=== PATIENT | female | born 1995 | race Caucasian/White ===

== ENCOUNTER 2017-11-27 15:44 | Inpatient (IN) | payer BC, OTHER ==
[2017-11-27 15:52] VITALS: BMI 37.0
--- NOTE | 2017-11-27 20:27 | HP ---
COWS - Scale Resting Pulse: 1= [place] 81-100 Sweatin= Chills/Flushing Restless Observation: 1= Difficult to Sit Still Pupil Size: 1= Pupils >than Normal Bone or Joint Aches: 1= Mild Discomfort Runny Nose/ Eye Tearin= Runny Nose/Eyes GI Upset > 30mins: 3= Vomiting/Diarrhea Tremor Observation: 1= Tremor [place], Not Seen Yawning Observation: 1= 1-2x During Session Anxiety or Irritability: 2=Irritable/Anxious Goose Flesh Skin: 3=Piloerection COWS Score: 17 Admission ROS S - HPI Chief Complaint: "I feel really sick right now, the withdrawal are so bad" opioid withdrawal symptoms Allergies/Adverse Reactions: Allergies Allergy/AdvReac Type Severity Reaction Status Date / Time No Known Allergies Allergy Verified 11/27/17 17:41 History of Present Illness: 22 yo female with hx of heroin and cocaine dependence is here seeking detox for the first time. Denies any medical problems, reports anxiety. Denies suicidal / homicidal ideation. Denies hx of overdose, seizures or blackouts. Reports no significant period of sobriety. Exam Limitations: No Limitations - Ebola screening Have you traveled outside of the country in the last 21 days: No (N) Have you had contact with anyone from an Ebola affected area: No Have you been sick,other than usual withdrawal symptoms: No Do you have a fever: No - Review of Systems Constitutional: Chills, Diaphoresis, Loss of Appetite, Changes in sleep, Weakness EENT: reports: Nose Congestion Respiratory: reports: No Symptoms reported Cardiac: reports: No Symptoms Reported GI: reports: Nausea, Poor Appetite, Poor Fluid Intake, Vomiting, Abdominal cramping : reports: No Symptoms Reported Musculoskeletal: reports: Back Pain, Joint Pain Integumentary: reports: No Symptoms Reported Neuro: reports: No Symptoms reported Endocrine: reports: Increased Thirst Hematology: reports: No Symptoms Reported Psychiatric: reports: Orientated x3, Anxious Other Systems: Reviewed and Negative Patient History - Patient Medical History Hx Anemia: No Hx Asthma: No Hx Chronic Obstructive Pulmonary Disease (COPD): No Hx Cancer: No Hx Cardiac Disorders: No Hx Congestive Heart Failure: No Hx Hypertension: No Hx Hypercholesterolemia: No Hx Pacemaker: No HX Cerebrovascular Accident: No Hx Seizures: No Hx Dementia: No Hx Diabetes: No Hx Gastrointestinal Disorders: No Hx Liver Disease: No Hx Genitourinary Disorders: No Hx Sexually Transmitted Disorders: No Hx Renal Disease (ESRD): No Hx Thyroid Disease: No Hx Human Immunodeficiency Virus (HIV): No Hx Hepatitis C: No Hx Depression: No Hx Suicide Attempt: No Hx Bipolar Disorder: No Hx Schizophrenia: No - Patient Surgical History Past Surgical History: No - PPD History Previous Implant?: Yes Documented Results: Negative w/o proof Implanted On Prior R Admission?: No PPD to be Administered?: Yes - Reproductive History Patient is a Female of Child Bearing Age (11 -55 yrs old): Yes Last Menstrual Period: 10/27/17 Patient : No - Smoking Cessation Smoking history: Never smoked Hx Chewing Tobacco Use: No Initiated information on smoking cessation: No - Substance & Tx. History Hx Alcohol Use: No Hx Substance Use: Yes Substance Use Type: Cocaine, Heroin, Opiates - Substances Abused Heroin Route: Inhalation Frequency: Daily Amount used: 1 gram Age of first use: 21 Date of Last Use: 11/27/17 Cocaine Route: Inhalation Frequency: 1-2 times per week Amount used: 1 gram Age of first use: Date of Last Use: 11/24/17 Family Disease History - Family Disease History Family History: Unable to Obtain Admission Physical Exam BHS - Vital Signs Vital Signs: Vital Signs - 24 hr 11/27/17 15:48 Temperature 99.4 F Pulse Rate 84 Respiratory 18 Rate Blood Pressure 121/72 - Physical General Appearance: Yes: Appropriately Dressed, Moderate Distress, Obese, Tremorous, Sweating, Anxious HEENTM: Yes: EOMI, Hearing grossly Normal, Normal ENT Inspection, Normocephalic , Normal Voice, SKIP, Pharynx Normal, Tm's normal, Rhinorrhea Respiratory: Yes: Chest Non-Tender, Lungs Clear, Normal Breath Sounds, No Respiratory Distress, No Accessory Muscle Use Neck: Yes: Within Normal Limits Breast: Yes: Breast Exam Deferred Cardiology: Yes: Regular Rhythm, Regular Rate Abdominal: Yes: Normal Bowel Sounds, Non Tender, Soft, Protuberent Genitourinary: Yes: Within Normal Limits Back: Yes: Normal Inspection Musculoskeletal: Yes: full range of Motion, Gait Steady, Pelvis Stable Extremities: Yes: Within Normal Limits 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, Fully Oriented, Alert, Motor Strength 5/5, Normal Response, Depressed Affect Integumentary: Yes: Normal Color, Warm, Diaphoresis Lymphatic: Yes: Within Normal Limits - Diagnostic (1) Opioid dependence with withdrawal Current Visit: Yes Status: Acute (2) Cocaine dependence Current Visit: Yes Status: Acute (3) Obese Current Visit: Yes Status: Chronic Qualifiers: Obesity type: unspecified obesity type Obesity classification: adult class 2 (BMI 35 - 39.9) Body mass index: BMI 37.0-37.9 Cleared for Admission [facility] - Detox or Rehab [facility] Level of Care: Medically Managed Detox Regimen/Protocol: Methadone [facility] Breath Alcohol Content Breath Alcohol Content: 0 Urine Pregancy Test - Result Urine Test Results: Negative- NO Line Present Urine Drug Screen - Results Drug Screen Negative: No Urine Drug Screen Results: EAN-Cocaine, OPI-Opiates, BZO-Benzodiazepines, OXY- Oxycodone
[2017-11-27] MEDS ORDERED: ACETAMINOPHEN 325 MG TABLET (FP) PO PRN (20:31)
[2017-11-27] MEDS ORDERED: MAG HYDROX/AL HYDROX/SIMETH 30 ML UNIT-DOSE CUP PO PRN (20:31)
[2017-11-27] MEDS ORDERED: LOPERAMIDE HCL 2 MG CAPSULE PO PRN (20:31)
[2017-11-27] MEDS ORDERED: MAGNESIUM CITRATE 300 ML BOTTLE PO PRN (20:31)
[2017-11-27] MEDS ORDERED: P-EPHED 60MG/TRIPROLIDI 2.5MG TABLET PO PRN (20:31)
[2017-11-27] MEDS ORDERED: MENTHOL/PHENOL 1 EACH UD MM PRN (20:31)
[2017-11-27] MEDS ORDERED: guaiFENesin/D-METHORPHAN HB 10 ML UNIT-DOSE CUPS PO PRN (20:31)
[2017-11-27] MEDS ORDERED: MAGNESIUM HYDROX 2400MG/30ML ORAL SUSPENSION 30 ML CUP PO PRN (20:31)
[2017-11-27] MEDS ORDERED: METHADONE HCL 10 MG TABLET (FOR DETOX USE ONLY) PO ONE ×2 (21:00→23:00)
[2017-11-27] MEDS: diazePAM 5 MG TABLET PO PRN (22:41)
[2017-11-27] MEDS: THIAMINE HCL 100 MG TABLET (FP) PO SCH (22:41)
[2017-11-27] MEDS: CYCLOBENZAPRINE HCL 5 MG TABLET PO SCH (22:43)
[2017-11-27 23:28] LABS: URINE APPEARANCE CLEAR; URINE BILIRUBIN NEGATIVE (<2.0 mg/dL); URINE COLOR YELLOW; URINE GLUCOSE (UA) NEGATIVE (NEGATIVE); URINE KETONE NEGATIVE (NEGATIVE); URINE LEUK ESTERASE NEGATIVE (NEGATIVE); URINE NITRITE NEGATIVE (NEGATIVE); URINE PROTEIN NEGATIVE (NEGATIVE); URINE UROBILINOGEN NEGATIVE mg/dL (0.2-1.0)
[2017-11-28] MEDS: CYCLOBENZAPRINE HCL 5 MG TABLET PO SCH ×3 (06:53→22:10)
[2017-11-28] MEDS: diazePAM 5 MG TABLET PO PRN ×3 (06:53→22:10)
[2017-11-28] MEDS: IBUPROFEN 400 MG TABLET (FP) PO PRN ×3 (06:54→22:11)
--- NOTE | 2017-11-28 07:37 | CONSULT ---
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 Denies suicidal, nomicidal history. Substance Abuse History: - Smoking Cessation. Smoking history: Never smoked. Hx Chewing Tobacco Use: No. Initiated information on smoking cessation: No. - Substance & Tx. History. Hx Alcohol Use: No. Hx Substance Use: Yes. Substance Use Type: Cocaine, Heroin, Opiates. - Substances Abused. Heroin. Route: Inhalation. Frequency: Daily. Amount used: 1 gram. Age of first use : 21. Date of Last Use: 11/27/17. Cocaine. Route: Inhalation. Frequency: 1-2 times per week. Amount used: 1 gram. Age of first use: 21. Date of Last Use: 11/24/17 Medical History: Obesity Psychiatric History: Denies past psychiatric history Physical/Sexual Abuse/Trauma History: Denies Additional Comment: Observation. Detox Unit Care Protocol Mental Status Exam - Mental Status Exam Alert and Oriented to: Person Cognitive Function: Fair Patient Appearance: Unkempt Mood: Apprehensive Affect: Mood Congruent Patient Behavior: Cooperative Speech Pattern: Appropriate Voice Loudness: Normal Thought Process: Goal Oriented Thought Disorder: Being Controlled Hallucinations: Denies Suicidal Ideation: Denies Homicidal Ideation: Denies Insight/Judgement: Fair Sleep: Fair Appetite: Weight gain Muscle strength/Tone: Normal Gait/Station: Normal Additional Comments: Observation. Detox Unit Care Protocol Psychiatric Findings - Problem List ([place] 1, 2,3) (1) Substance induced mood disorder Current Visit: Yes Status: Acute (2) Cocaine dependence Current Visit: Yes Status: Acute (3) Opioid dependence with withdrawal Current Visit: Yes Status: Acute - Initial Treatment Plan Initial Treatment Plan: Observation. Detox Unit Care Protocol
[2017-11-28] MEDS ORDERED: METHADONE HCL 10 MG TABLET (FOR DETOX USE ONLY) PO ONE (10:00)
[2017-11-28] MEDS: PRENATAL VITAMINS W/ FOLIC ACID TABLET (FP) PO SCH (10:10)
[2017-11-28 10:17] LABS: HEMATOCRIT 39.2 % (32.4-45.2); HEMOGLOBIN 13.6 GM/dL (10.7-15.3); MCH 28.9 pg (25.7-33.7); MCHC 34.7 g/dl (32.0-36.0); MEAN CELL VOLUME 83.4 fl (80-96); MEAN PLT VOLUME 8.7 fl (7.5-11.1); PLATELET COUNT 230 K/MM3 (134-434); RDW 12.6 % (11.6-15.6); WHITE BLOOD COUNT 6.6 K/mm3 (4.0-10.0)
[2017-11-28 10:33] LABS: CHLORIDE 105 mmol/L (98-107); POTASSIUM 3.8 mmol/L (3.5-5.1); SODIUM 142 mmol/L (136-145)
[2017-11-28 10:43] LABS: ALBUMIN 3.8 g/dl (3.4-5.0); ALK PHOS 59 U/L (45-117); ANION GAP 11 MMOL/L (8-16); BILIRUBIN,TOTAL 0.4 mg/dL (0.2-1.0); BLOOD UREA NITROGEN 9 mg/dL (7-18); CALCIUM 9.1 mg/dL (8.5-10.1); CO2 26 mmol/L (21-32); CREATININE 0.5 mg/dL (0.55-1.02); GLUCOSE,RANDOM 101 mg/dL (74-106); SGOT/AST 12 U/L (15-37); SGPT/ALT 23 U/L (12-78); TOT PROT 7.2 g/dl (6.4-8.2)
[2017-11-28] MEDS ORDERED: hydrOXYzine PAMOATE 50 MG CAPSULE (FP) PO PRN (14:51)
--- NOTE | 2017-11-28 14:52 | PN ---
BHS COWS - Scale Resting Pulse: 1= [place] 81-100 Sweatin=Flushed/Facial Moisture Restless Observation: 1= Difficult to Sit Still Pupil Size: 1= Pupils >than Normal Bone or Joint Aches: 1= Mild Discomfort Runny Nose/ Eye Tearin= Runny Nose/Eyes GI Upset > 30mins: 1= Stomach Cramp Tremor Observation of Outstretched Hands: 2= Slight Tremor Visible Yawning Observation: 0= None Anxiety or Irritability: 2=Irritable/Anxious Goose Flesh Skin: 3=Piloerection COWS Score: 16 BHS Progress Note (SOAP) Subjective: pt states she feels like she is in withdrawal from heroin Obj: Vital Signs - 24 hr 11/27/17 11/27/17 11/28/17 15:48 22:49 00:30 Temperature 99.4 F 97.9 F Pulse Rate 84 86 Respiratory 18 18 18 Rate Blood Pressure 121/72 137/76 11/28/17 11/28/17 11/28/17 03:30 06:53 09:34 Temperature 96.6 F L 98.4 F Pulse Rate 74 81 Respiratory 18 18 16 Rate Blood Pressure 116/73 107/54 Laboratory Tests 11/27/17 11/28/17 11/28/17 21:55 07:40 07:40 WBC 6.6 RBC 4.70 Hgb 13.6 Hct 39.2 MCV 83.4 MCH 28.9 MCHC 34.7 RDW 12.6 Plt Count 230 MPV 8.7 Sodium 142 Potassium 3.8 Chloride 105 Carbon Dioxide 26 Anion Gap 11 BUN 9 Creatinine 0.5 L Creat Clearance w eGFR > 60 Random Glucose 101 Calcium 9.1 Total Bilirubin 0.4 AST 12 L ALT 23 Alkaline Phosphatase 59 Total Protein 7.2 Albumin 3.8 Urine Color Yellow Urine Appearance Clear Urine pH 6.0 Ur Specific [place] 1.018 Urine Protein Negative Urine Glucose (UA) Negative Urine Ketones Negative Urine Blood Negative Urine Nitrite Negative Urine Bilirubin Negative Urine Urobilinogen Negative Ur Leukocyte Esterase Negative RPR Titer 11/28/17 08:20 WBC RBC Hgb Hct MCV MCH MCHC RDW Plt Count MPV Sodium Potassium Chloride Carbon Dioxide Anion Gap BUN Creatinine Creat Clearance w eGFR Random Glucose Calcium Total Bilirubin AST ALT Alkaline Phosphatase Total Protein Albumin Urine Color Urine Appearance Urine pH Ur Specific [place] Urine Protein Urine Glucose (UA) Urine Ketones Urine Blood Urine Nitrite Urine Bilirubin Urine Urobilinogen Ur Leukocyte Esterase RPR Titer Nonreactive labs WNL VSS ess nl pt with tremors, difficulty to sit still Ass/plan: 22 yo female with hx of heroin and cocaine dependence is here for heroin detox- continue detox protocol, d/w pt prn meds that she can access for her Sx: valium, vistaril ...
--- NOTE | 2017-11-28 16:05 | EKG ---
Test Reason : Blood Pressure : / mmHG Vent. Rate : 080 BPM Atrial Rate : 080 BPM P-R Int : 162 ms QRS Dur : 084 ms QT Int : 362 ms P-R-T Axes : 018 032 019 degrees QTc Int : 417 ms NORMAL SINUS RHYTHM LOW VOLTAGE QRS BORDERLINE ECG NO PREVIOUS ECGS AVAILABLE Confirmed by Sara Carrillo ([id number]) on 11/28/2017 4:05:26 PM Referred By: Confirmed By:Sara Carrillo
[2017-11-28] MEDS: THIAMINE HCL 100 MG TABLET (FP) PO SCH (22:10)
[2017-11-28] MEDS: MELATONIN 5 MG TABLETS PO PRN (22:11)
[2017-11-29] MEDS: diazePAM 5 MG TABLET PO PRN ×4 (05:10→22:10)
[2017-11-29] MEDS: IBUPROFEN 400 MG TABLET (FP) PO PRN (05:10)
[2017-11-29] MEDS: CYCLOBENZAPRINE HCL 5 MG TABLET PO SCH ×3 (05:10→22:11)
[2017-11-29] MEDS ORDERED: METHADONE HCL 5 MG TABLET (FOR DETOX USE ONLY) PO ONE (10:00)
[2017-11-29] MEDS: PRENATAL VITAMINS W/ FOLIC ACID TABLET (FP) PO SCH (10:25)
--- NOTE | 2017-11-29 11:40 | PN ---
S COWS - Scale Resting Pulse: 0= [place] 80 or Below Sweatin=Flushed/Facial Moisture Restless Observation: 1= Difficult to Sit Still Pupil Size: 1= Pupils >than Normal Bone or Joint Aches: 2= Severe Diffuse Aches Runny Nose/ Eye Tearin= Nasal Congestion GI Upset > 30mins: 2= Nausea/Diarrhea Tremor Observation of Outstretched Hands: 1= Tremor [place], Not Seen Yawning Observation: 0= None Anxiety or Irritability: 2=Irritable/Anxious Goose Flesh Skin: 3=Piloerection COWS Score: 15 S Progress Note (SOAP) Subjective: interrupted sleep seats, aches, Objective: 11/29/17 11:38 Vital Signs Temperature 97.5 F L 11/29/17 11:16 Pulse Rate 75 11/29/17 11:16 Respiratory Rate 16 11/29/17 11:16 Blood Pressure 102/57 11/29/17 11:16 O2 Sat by Pulse Oximetry (%) Laboratory Tests 11/27/17 11/28/17 11/28/17 21:55 07:40 07:40 WBC 6.6 RBC 4.70 Hgb 13.6 Hct 39.2 MCV 83.4 MCH 28.9 MCHC 34.7 RDW 12.6 Plt Count 230 MPV 8.7 Sodium 142 Potassium 3.8 Chloride 105 Carbon Dioxide 26 Anion Gap 11 BUN 9 Creatinine 0.5 L Creat Clearance w eGFR > 60 Random Glucose 101 Calcium 9.1 Total Bilirubin 0.4 AST 12 L ALT 23 Alkaline Phosphatase 59 Total Protein 7.2 Albumin 3.8 Urine Color Yellow Urine Appearance Clear Urine pH 6.0 Ur Specific [place] 1.018 Urine Protein Negative Urine Glucose (UA) Negative Urine Ketones Negative Urine Blood Negative Urine Nitrite Negative Urine Bilirubin Negative Urine Urobilinogen Negative Ur Leukocyte Esterase Negative RPR Titer 11/28/17 08:20 WBC RBC Hgb Hct MCV MCH MCHC RDW Plt Count MPV Sodium Potassium Chloride Carbon Dioxide Anion Gap BUN Creatinine Creat Clearance w eGFR Random Glucose Calcium Total Bilirubin AST ALT Alkaline Phosphatase Total Protein Albumin Urine Color Urine Appearance Urine pH Ur Specific [place] Urine Protein Urine Glucose (UA) Urine Ketones Urine Blood Urine Nitrite Urine Bilirubin Urine Urobilinogen Ur Leukocyte Esterase RPR Titer Nonreactive pt aox3 irritable n nsd Assessment: 11/29/17 11:39 withdrawal sx's Plan: cont. detox increase fluids
[2017-11-29] MEDS: THIAMINE HCL 100 MG TABLET (FP) PO SCH (22:11)
[2017-11-30] MEDS: diazePAM 5 MG TABLET PO PRN ×3 (05:44→14:18)
[2017-11-30] MEDS: CYCLOBENZAPRINE HCL 5 MG TABLET PO SCH ×3 (05:44→22:16)
[2017-11-30] MEDS ORDERED: METHADONE HCL 5 MG TABLET (FOR DETOX USE ONLY) PO ONE (10:00)
[2017-11-30] MEDS: PRENATAL VITAMINS W/ FOLIC ACID TABLET (FP) PO SCH (10:35)
[2017-11-30] MEDS: IBUPROFEN 400 MG TABLET (FP) PO PRN (10:38)
--- NOTE | 2017-11-30 12:48 | PN ---
BHS Progress Note (SOAP) Subjective: Bone/muscle pain,tremors, sweats and irritability Objective: 11/30/17 12:45 Vital Signs 11/30/17 11/30/17 06:00 09:42 Temperature 97.9 F 98.4 F Pulse Rate 71 77 Respiratory 18 18 Rate Blood Pressure 119/71 103/59 Laboratory Last Values WBC 6.6 K/mm3 (4.0-10.0) 11/28/17 07:40 RBC 4.70 M/mm3 (3.60-5.2) 11/28/17 07:40 Hgb 13.6 GM/dL (10.7-15.3) 11/28/17 07:40 Hct 39.2 % (32.4-45.2) 11/28/17 07:40 MCV 83.4 fl (80-96) 11/28/17 07:40 MCH 28.9 pg (25.7-33.7) 11/28/17 07:40 MCHC 34.7 g/dl (32.0-36.0) 11/28/17 07:40 RDW 12.6 % (11.6-15.6) 11/28/17 07:40 Plt Count 230 K/MM3 (134-434) 11/28/17 07:40 MPV 8.7 fl (7.5-11.1) 11/28/17 07:40 Sodium 142 mmol/L (136-145) 11/28/17 07:40 Potassium 3.8 mmol/L (3.5-5.1) 11/28/17 07:40 Chloride 105 mmol/L (98-107) 11/28/17 07:40 Carbon Dioxide 26 mmol/L (21-32) 11/28/17 07:40 Anion Gap 11 MMOL/L (8-16) 11/28/17 07:40 BUN 9 mg/dL (7-18) 11/28/17 07:40 Creatinine 0.5 mg/dL (0.55-1.02) L 11/28/17 07:40 Creat Clearance w eGFR > 60 (>60) 11/28/17 07:40 Random Glucose 101 mg/dL (74-106) 11/28/17 07:40 Calcium 9.1 mg/dL (8.5-10.1) 11/28/17 07:40 Total Bilirubin 0.4 mg/dL (0.2-1.0) 11/28/17 07:40 AST 12 U/L (15-37) L 11/28/17 07:40 ALT 23 U/L (12-78) 11/28/17 07:40 Alkaline Phosphatase 59 U/L (45-117) 11/28/17 07:40 Total Protein 7.2 g/dl (6.4-8.2) 11/28/17 07:40 Albumin 3.8 g/dl (3.4-5.0) 11/28/17 07:40 Urine Color Yellow 11/27/17 21:55 Urine Appearance Clear 11/27/17 21:55 Urine pH 6.0 (5.0-8.0) 11/27/17 21:55 Ur Specific [place] 1.018 (1.001-1.035) 11/27/17 21:55 Urine Protein Negative (NEGATIVE) 11/27/17 21:55 Urine Glucose (UA) Negative (NEGATIVE) 11/27/17 21:55 Urine Ketones Negative (NEGATIVE) 11/27/17 21:55 Urine Blood Negative (NEGATIVE) 11/27/17 21:55 Urine Nitrite Negative (NEGATIVE) 11/27/17 21:55 Urine Bilirubin Negative (<2.0 mg/dL) 11/27/17 21:55 Urine Urobilinogen Negative mg/dL (0.2-1.0) 11/27/17 21:55 Ur Leukocyte Esterase Negative (NEGATIVE) 11/27/17 21:55 RPR Titer Nonreactive (NONREACTIVE) 11/28/17 08:20 Labs noted Assessment: 11/30/17 12:47 Withdrawal sx Plan: Continue detox
[2017-11-30] MEDS: hydrOXYzine PAMOATE 50 MG CAPSULE (FP) PO PRN (22:16)
[2017-11-30] MEDS: THIAMINE HCL 100 MG TABLET (FP) PO SCH (22:16)
[2017-11-30] MEDS: MELATONIN 5 MG TABLETS PO PRN (22:17)
[2017-12-01] MEDS: CYCLOBENZAPRINE HCL 5 MG TABLET PO SCH ×3 (05:14→22:11)
[2017-12-01] MEDS ORDERED: METHADONE HCL 10 MG TABLET (FOR DETOX USE ONLY) PO ONE (10:00)
[2017-12-01] MEDS: PRENATAL VITAMINS W/ FOLIC ACID TABLET (FP) PO SCH (10:16)
[2017-12-01] MEDS: IBUPROFEN 400 MG TABLET (FP) PO PRN (10:19)
--- NOTE | 2017-12-01 15:04 | PN ---
[facility] Progress Note (SOAP) Subjective: C/o tremors, body aches, sweats, and anxiety. Objective: Alert and oriented x 3. Respirations quiet and unlabored. Gait steady. Lab Results WBC 6.6 K/mm3 (4.0-10.0) 11/28/17 07:40 RBC 4.70 M/mm3 (3.60-5.2) 11/28/17 07:40 Hgb 13.6 GM/dL (10.7-15.3) 11/28/17 07:40 Hct 39.2 % (32.4-45.2) 11/28/17 07:40 MCV 83.4 fl (80-96) 11/28/17 07:40 MCHC 34.7 g/dl (32.0-36.0) 11/28/17 07:40 RDW 12.6 % (11.6-15.6) 11/28/17 07:40 Plt Count 230 K/MM3 (134-434) 11/28/17 07:40 Sodium 142 mmol/L (136-145) 11/28/17 07:40 Potassium 3.8 mmol/L (3.5-5.1) 11/28/17 07:40 Chloride 105 mmol/L (98-107) 11/28/17 07:40 Carbon Dioxide 26 mmol/L (21-32) 11/28/17 07:40 Anion Gap 11 MMOL/L (8-16) 11/28/17 07:40 BUN 9 mg/dL (7-18) 11/28/17 07:40 Creatinine 0.5 mg/dL (0.55-1.02) L 11/28/17 07:40 Random Glucose 101 mg/dL (74-106) 11/28/17 07:40 Calcium 9.1 mg/dL (8.5-10.1) 11/28/17 07:40 Labs reviewed. 12/01/17 15:01 Vital Signs - 24 hr 11/30/17 11/30/17 12/01/17 17:46 22:56 00:30 Temperature 97.7 F 98.1 F Pulse Rate 98 H 101 H Respiratory 20 18 18 Rate Blood Pressure 112/70 107/52 12/01/17 12/01/17 12/01/17 03:30 06:00 10:00 Temperature 97.2 F L 97.2 F L Pulse Rate 67 78 Respiratory 18 18 16 Rate Blood Pressure 101/54 98/63 12/01/17 15:03 Assessment: Withdrawal symptoms. 12/01/17 15:02 Plan: Continue detox protocol.
[2017-12-01] MEDS: THIAMINE HCL 100 MG TABLET (FP) PO SCH (22:11)
[2017-12-02] MEDS: CYCLOBENZAPRINE HCL 5 MG TABLET PO SCH (05:29)
[2017-12-02] MEDS ORDERED: METHADONE HCL 5 MG TABLET (FOR DETOX USE ONLY) PO ONE (06:00)
--- NOTE | 2017-12-02 08:49 | PN ---
BHS Progress Note (SOAP) Subjective: interrupted sleep, sweats Objective: 12/02/17 08:46 Vital Signs Temperature 97.9 F 12/02/17 07:47 Pulse Rate 66 12/02/17 07:47 Respiratory Rate 18 12/02/17 07:47 Blood Pressure 118/69 12/02/17 07:47 O2 Sat by Pulse Oximetry (%) Laboratory Tests 11/27/17 11/28/17 11/28/17 21:55 07:40 07:40 WBC 6.6 RBC 4.70 Hgb 13.6 Hct 39.2 MCV 83.4 MCH 28.9 MCHC 34.7 RDW 12.6 Plt Count 230 MPV 8.7 Sodium 142 Potassium 3.8 Chloride 105 Carbon Dioxide 26 Anion Gap 11 BUN 9 Creatinine 0.5 L Creat Clearance w eGFR > 60 Random Glucose 101 Calcium 9.1 Total Bilirubin 0.4 AST 12 L ALT 23 Alkaline Phosphatase 59 Total Protein 7.2 Albumin 3.8 Urine Color Yellow Urine Appearance Clear Urine pH 6.0 Ur Specific [place] 1.018 Urine Protein Negative Urine Glucose (UA) Negative Urine Ketones Negative Urine Blood Negative Urine Nitrite Negative Urine Bilirubin Negative Urine Urobilinogen Negative Ur Leukocyte Esterase Negative RPR Titer 11/28/17 08:20 WBC RBC Hgb Hct MCV MCH MCHC RDW Plt Count MPV Sodium Potassium Chloride Carbon Dioxide Anion Gap BUN Creatinine Creat Clearance w eGFR Random Glucose Calcium Total Bilirubin AST ALT Alkaline Phosphatase Total Protein Albumin Urine Color Urine Appearance Urine pH Ur Specific [place] Urine Protein Urine Glucose (UA) Urine Ketones Urine Blood Urine Nitrite Urine Bilirubin Urine Urobilinogen Ur Leukocyte Esterase RPR Titer Nonreactive pt aox3 in nad ambulating Assessment: 12/02/17 08:46 detox completed -pt improved Plan: d/c today increase fluids out pt tx program
--- NOTE | 2017-12-02 08:52 | DS ---
[facility] Detox Discharge Summary Admission Date: 11/27/17 Discharge Date: 12/02/17 - History Present History: Cocaine Dependence, Opioid Dependence - Physical Exam Results Vital Signs: Vital Signs Temperature 97.9 F 12/02/17 07:47 Pulse Rate 66 12/02/17 07:47 Respiratory Rate 18 12/02/17 07:47 Blood Pressure 118/69 12/02/17 07:47 O2 Sat by Pulse Oximetry (%) - Treatment Hospital Course: Detox Protocol Followed, Detoxed Safely, Responded well, Discharged Condition Good - Medication Discharge Medications: Ambulatory Orders NK [No Known Home Medication] 11/27/17 - Diagnosis (1) Cocaine dependence Current Visit: Yes Status: Chronic Qualifiers: Substance use status: uncomplicated Qualified Code(s): F14.20 - Cocaine dependence, uncomplicated (2) Opioid dependence with withdrawal Current Visit: Yes Status: Chronic - AMA Did Patient Leave Against Medical Advice: No
[2017-12-02] MEDS: PRENATAL VITAMINS W/ FOLIC ACID TABLET (FP) PO SCH (09:24)
[2017-12-02 09:31] VITALS: BP 124/77; PULSE 121; TEMP 97.2
[2017-12-02] MEDS: hydrOXYzine PAMOATE 50 MG CAPSULE (FP) PO PRN (09:49)
== END 2017-12-02 10:07 | disposition home or self-care (01) | DRG 897 ==
LOC: YASAS 15:44 → Y6N 18:16
PROVIDERS: ADMIT Surgery; ATTEND Surgery
PROC: HZ2ZZZZ Detoxification Services for Substance Abuse Treatment (ICD-10-PCS; principal; 2017-11-27)
DX: F11.23 Opioid dependence with withdrawal (principal); F14.20 Cocaine dependence, uncomplicated; E66.9 Obesity, unspecified; Z68.37 Body mass index [BMI] 37.0-37.9, adult
CPT/HCPCS: 36415; 80053; 81003; 85027; 86593; 93005; 93010

== ENCOUNTER 2018-03-24 10:54 | Inpatient (IN) | payer OTHER ==
[2018-03-24 12:10] VITALS: BMI 36.0
--- NOTE | 2018-03-24 13:08 | HP ---
COWS - Scale Resting Pulse: 1= [place] 81-100 Sweatin= Chills/Flushing Restless Observation: 1= Difficult to Sit Still Pupil Size: 1= Pupils >than Normal Bone or Joint Aches: 2= Severe Diffuse Aches Runny Nose/ Eye Tearin= Runny Nose/Eyes GI Upset > 30mins: 2= Nausea/Diarrhea Tremor Observation: 2= Slight Tremor Visible Yawning Observation: 1= 1-2x During Session Anxiety or Irritability: 2=Irritable/Anxious Goose Flesh Skin: 0=Smooth Skin COWS Score: 15 CIWA Score - Admission Criteria OASAS Guidelines: Admission for Medically Managed Detox: Requires at least one of the followin. CIWA greater than 12 2. Seizures within the past 24 hours 3. Delirium tremens within the past 24 hours 4. Hallucinations within the past 24 hours 5. Acute intervention needed for co occurring medical disorder 6. Acute intervention needed for co occurring psychiatric disorder 7. Severe withdrawal that cannot be handled at a lower level of care (continued vomiting, continued diarrhea, abnormal vital signs) requiring intravenous medication and/or fluids 8. Admission ROS S - HPI Chief Complaint: i need help to stop using heroin and xanax Allergies/Adverse Reactions: Allergies Allergy/AdvReac Type Severity Reaction Status Date / Time No Known Allergies Allergy Verified 03/24/18 12:15 History of Present Illness: this 22 years old female with heroin dependence and xanax dependence,seeking detox,withdrawal symptom,last detox 11/27/17 to 12/02/17 anxiety and depression plan for rehab Exam Limitations: No Limitations - Ebola screening Have you traveled outside of the country in the last 21 days: No Have you had contact with anyone from an Ebola affected area: No Have you been sick,other than usual withdrawal symptoms: No - Review of Systems Constitutional: Chills, Loss of Appetite, Malaise, Night Sweats, Changes in sleep, Weakness EENT: reports: Tearing, Nose Congestion Respiratory: reports: No Symptoms reported Cardiac: reports: No Symptoms Reported GI: reports: Nausea, Poor Appetite, Abdominal cramping : reports: No Symptoms Reported Musculoskeletal: reports: Back Pain, Joint Pain, Muscle Pain Integumentary: reports: Dryness Neuro: reports: Headache, Tremors Endocrine: reports: No Symptoms Reported Hematology: reports: No Symptoms Reported Psychiatric: reports: Judgement Intact, Mood/Affect Appropiate, Orientated x3, Agitated, Anxious, Depressed, Disorientated Patient History - Patient Medical History Hx Anemia: No Hx Asthma: No Hx Chronic Obstructive Pulmonary Disease (COPD): No Hx Cancer: No Hx Cardiac Disorders: No Hx Congestive Heart Failure: No Hx Hypertension: No Hx Hypercholesterolemia: No Hx Pacemaker: No HX Cerebrovascular Accident: No Hx Seizures: No Hx Dementia: No Hx Diabetes: No Hx Gastrointestinal Disorders: No Hx Liver Disease: No Hx Genitourinary Disorders: No Hx Sexually Transmitted Disorders: No Hx Renal Disease (ESRD): No Hx Thyroid Disease: No Hx Human Immunodeficiency Virus (HIV): No Hx Hepatitis C: No Hx Depression: Yes Hx Suicide Attempt: No Hx Bipolar Disorder: No Hx Schizophrenia: No Other Medical History: no suicidal,no homicidal - Patient Surgical History Past Surgical History: No Hx Neurologic Surgery: No Hx Cataract Extraction: No Hx Cardiac Surgery: No Hx Lung Surgery: No Hx Breast Surgery: No Hx Breast Biopsy: No Hx Abdominal Surgery: No Hx Appendectomy: No Hx Cholecystectomy: No Hx Genitourinary Surgery: No Hx Section: No Hx Orthopedic Surgery: No Anesthesia Reaction: No - PPD History Previous Implant?: Yes Implanted On Prior [facility] Admission?: Yes Date: 11/29/17 Results: 0 mm PPD to be Administered?: No - Reproductive History Patient is a Female of Child Bearing Age (11 -55 yrs old): Yes Last Menstrual Period: 03/10/18 Patient : No - Smoking Cessation Smoking history: Never smoked Hx Chewing Tobacco Use: No Initiated information on smoking cessation: No - Substance & Tx. History Hx Alcohol Use: No Hx Substance Use: Yes Substance Use Type: Heroin, Tranquilizers Hx Substance Use Treatment: Yes ([facility] 11/27/17 to 12/02/17) - Substances Abused Heroin Route: Inhalation Frequency: Daily Amount used: 15 bags Age of first use: 20 Date of Last Use: 03/24/18 Xanax Route: Oral Frequency: 1-2 times per week Amount used: 4 mg. Age of first use: 21 Date of Last Use: 03/21/18 Family Disease History - Family Disease History Family History: Denies Admission Physical Exam BHS - Vital Signs Vital Signs: Vital Signs - 24 hr 03/24/18 12:08 Temperature 97.2 F L Pulse Rate 83 Respiratory 18 Rate Blood Pressure 118/67 - Physical General Appearance: Yes: Moderate Distress, Tremorous, Irritable, Sweating, Anxious HEENTM: Yes: Normal ENT Inspection, Normocephalic, SKIP, Pharynx Normal Respiratory: Yes: Lungs Clear, Normal Breath Sounds, No Respiratory Distress Neck: Yes: Within Normal Limits, Supple, Trachea in good position Breast: Yes: Breast Exam Deferred Cardiology: Yes: Within Normal Limits, Regular Rhythm, Regular Rate, S1, S2 Abdominal: Yes: Within Normal Limits, Normal Bowel Sounds, Non Tender, Flat, Soft Genitourinary: Yes: Within Normal Limits Back: Yes: Muscle Spasm Musculoskeletal: Yes: full range of Motion, Back pain, Muscle Pain Extremities: Yes: Tremors Neurological: Yes: chairman ceo II-XII NML intact, Alert, Motor Strength 5/5 Integumentary: Yes: Dry Lymphatic: Yes: Within Normal Limits - Diagnostic (1) Opioid dependence with withdrawal Current Visit: Yes Status: Chronic (2) Cocaine dependence Current Visit: No Status: Chronic Qualifiers: Substance use status: uncomplicated Qualified Code(s): F14.20 - Cocaine dependence, uncomplicated (3) Obese Current Visit: No Status: Chronic Qualifiers: Obesity type: unspecified obesity type Obesity classification: adult class 2 (BMI 35 - 39.9) Body mass index: BMI 37.0-37.9 (4) Benzodiazepine abuse Current Visit: Yes Status: Acute Cleared for Admission [facility] - Detox or Rehab [facility] Level of Care: Medically Managed Detox Regimen/Protocol: Methadone [facility] Breath Alcohol Content Breath Alcohol Content: 0 Urine Pregancy Test - Result Urine Test Results: Negative- NO Line Present Urine Drug Screen - Results Drug Screen Negative: No Urine Drug Screen Results: OPI-Opiates, FEN-Fentanyl
[2018-03-24] MEDS ORDERED: MAG HYDROX/AL HYDROX/SIMETH 30 ML UNIT-DOSE CUP PO PRN (13:15)
[2018-03-24] MEDS ORDERED: LOPERAMIDE HCL 2 MG CAPSULE PO PRN (13:15)
[2018-03-24] MEDS ORDERED: guaiFENesin/D-METHORPHAN HB 10 ML UNIT-DOSE CUPS PO PRN (13:15)
[2018-03-24] MEDS ORDERED: MAGNESIUM HYDROX 2400MG/30ML ORAL SUSPENSION 30 ML CUP PO PRN (13:15)
[2018-03-24] MEDS ORDERED: MENTHOL/PHENOL 1 EACH UD MM PRN (13:15)
[2018-03-24] MEDS ORDERED: P-EPHED 60MG/TRIPROLIDI 2.5MG TABLET PO PRN (13:15)
[2018-03-24] MEDS ORDERED: MAGNESIUM CITRATE 300 ML BOTTLE PO PRN (13:15)
[2018-03-24] MEDS ORDERED: ACETAMINOPHEN 325 MG TABLET (FP) PO PRN (13:15)
[2018-03-24] MEDS ORDERED: METHADONE HCL 10 MG TABLET (FOR DETOX USE ONLY) PO ONE ×2 (14:00→23:00)
[2018-03-24] MEDS: diazePAM 5 MG TABLET PO PRN ×2 (14:06→22:17)
[2018-03-24] MEDS: CYCLOBENZAPRINE HCL 10 MG TABLET (FP) PO PRN ×2 (14:08→22:17)
[2018-03-24 18:45] LABS: URINE APPEARANCE TURBID; URINE BILIRUBIN NEGATIVE (<2.0 mg/dL); URINE COLOR YELLOW; URINE GLUCOSE (UA) NEGATIVE (NEGATIVE); URINE KETONE NEGATIVE (NEGATIVE); URINE LEUK ESTERASE NEGATIVE (NEGATIVE); URINE NITRITE NEGATIVE (NEGATIVE); URINE PROTEIN NEGATIVE (NEGATIVE); URINE UROBILINOGEN NEGATIVE mg/dL (0.2-1.0)
[2018-03-24] MEDS: THIAMINE HCL 100 MG TABLET (FP) PO SCH (22:16)
[2018-03-24] MEDS: cloNIDine HCL 0.1 MG TABLET PO SCH (22:16)
[2018-03-24] MEDS: MELATONIN 5 MG TABLETS PO PRN (22:17)
[2018-03-25] MEDS ORDERED: METHADONE HCL 10 MG TABLET (FOR DETOX USE ONLY) PO ONE (10:00)
[2018-03-25] MEDS: PRENATAL VITAMINS W/ FOLIC ACID TABLET (FP) PO SCH (10:04)
[2018-03-25] MEDS: cloNIDine HCL 0.1 MG TABLET PO SCH ×2 (10:04→22:16)
[2018-03-25] MEDS: diazePAM 5 MG TABLET PO PRN ×3 (10:05→22:17)
[2018-03-25] MEDS: CYCLOBENZAPRINE HCL 10 MG TABLET (FP) PO PRN ×2 (10:07→22:16)
[2018-03-25 10:20] LABS: HEMATOCRIT 44.5 % (32.4-45.2); HEMOGLOBIN 14.7 GM/dL (10.7-15.3); MCH 28.5 pg (25.7-33.7); MCHC 32.9 g/dl (32.0-36.0); MEAN CELL VOLUME 86.4 fl (80-96); MEAN PLT VOLUME 10.3 fl (7.5-11.1); PLATELET COUNT 190 K/MM3 (134-434); RBC 5.15 M/mm3 (3.60-5.2); RDW 12.8 % (11.6-15.6); WHITE BLOOD COUNT 7.3 K/mm3 (4.0-10.0)
[2018-03-25 10:57] LABS: ALBUMIN 4.2 g/dl (3.4-5.0); ALK PHOS 72 U/L (45-117); ANION GAP 6 MMOL/L (8-16); BILIRUBIN,TOTAL 0.3 mg/dL (0.2-1); BLOOD UREA NITROGEN 10 mg/dL (7-18); CALCIUM 8.9 mg/dL (8.5-10.1); CHLORIDE 102 mmol/L (98-107); CO2 28 mmol/L (21-32); CREATININE 0.7 mg/dL (0.55-1.3); GLUCOSE,RANDOM 92 mg/dL (74-106); POTASSIUM 4.2 mmol/L (3.5-5.1); SGOT/AST 17 U/L (15-37); SGPT/ALT 35 U/L (13-61); SODIUM 136 mmol/L (136-145); TOT PROT 7.7 g/dl (6.4-8.2)
--- NOTE | 2018-03-25 11:03 | PN ---
BHS COWS - Scale Resting Pulse: 2= [place] 101-120 Sweatin=Flushed/Facial Moisture Restless Observation: 1= Difficult to Sit Still Pupil Size: 0= Normal to Room Light Bone or Joint Aches: 1= Mild Discomfort Runny Nose/ Eye Tearin= Runny Nose/Eyes GI Upset > 30mins: 2= Nausea/Diarrhea Tremor Observation of Outstretched Hands: 2= Slight Tremor Visible Yawning Observation: 2= >3x During Session Anxiety or Irritability: 2=Irritable/Anxious Goose Flesh Skin: 0=Smooth Skin COWS Score: 16 BHS Progress Note (SOAP) Subjective: sweats shakes interrupted sleep body aches chills Objective: 03/25/18 11:02 Vital Signs Temperature 97.2 F L 03/25/18 09:31 Pulse Rate 110 H 03/25/18 09:31 Respiratory Rate 16 03/25/18 09:31 Blood Pressure 137/77 03/25/18 09:31 O2 Sat by Pulse Oximetry (%) Laboratory Tests 03/24/18 03/25/18 03/25/18 15:33 05:45 05:45 WBC 7.3 RBC 5.15 Hgb 14.7 Hct 44.5 MCV 86.4 MCH 28.5 MCHC 32.9 RDW 12.8 Plt Count 190 MPV 10.3 D Sodium 136 Potassium 4.2 Chloride 102 Carbon Dioxide 28 Anion Gap 6 L BUN 10 Creatinine 0.7 Creat Clearance w eGFR > 60 Random Glucose 92 Calcium 8.9 Total Bilirubin 0.3 AST 17 ALT 35 Alkaline Phosphatase 72 Total Protein 7.7 Albumin 4.2 Urine Color Yellow Urine Appearance Turbid Urine pH 5.0 Ur Specific [place] 1.027 Urine Protein Negative Urine Glucose (UA) Negative Urine Ketones Negative Urine Blood Negative Urine Nitrite Negative Urine Bilirubin Negative Urine Urobilinogen Negative Ur Leukocyte Esterase Negative aaox3 ambulating no acute distress Assessment: 03/25/18 11:03 withdrawal sx Plan: continue detox interrupted sleep
[2018-03-25] MEDS: THIAMINE HCL 100 MG TABLET (FP) PO SCH (22:16)
[2018-03-25] MEDS: MELATONIN 5 MG TABLETS PO PRN (22:16)
[2018-03-25] MEDS: IBUPROFEN 400 MG TABLET (FP) PO PRN (22:17)
[2018-03-26] MEDS: diazePAM 5 MG TABLET PO PRN ×4 (05:56→22:20)
[2018-03-26] MEDS ORDERED: METHADONE HCL 5 MG TABLET (FOR DETOX USE ONLY) PO ONE (10:00)
[2018-03-26] MEDS: PRENATAL VITAMINS W/ FOLIC ACID TABLET (FP) PO SCH (10:19)
[2018-03-26] MEDS: cloNIDine HCL 0.1 MG TABLET PO SCH ×2 (10:20→22:20)
[2018-03-26] MEDS: CYCLOBENZAPRINE HCL 10 MG TABLET (FP) PO PRN ×2 (10:21→22:22)
--- NOTE | 2018-03-26 11:13 | PN ---
S COWS - Scale Resting Pulse: 0= [place] 80 or Below Sweatin= Chills/Flushing Restless Observation: 1= Difficult to Sit Still Pupil Size: 0= Normal to Room Light Bone or Joint Aches: 1= Mild Discomfort Runny Nose/ Eye Tearin= None GI Upset > 30mins: 1= Stomach Cramp Tremor Observation of Outstretched Hands: 2= Slight Tremor Visible Yawning Observation: 2= >3x During Session Anxiety or Irritability: 2=Irritable/Anxious Goose Flesh Skin: 3=Piloerection COWS Score: 13 S Progress Note (SOAP) Subjective: constipation sweats interrupted sleep agitation Objective: 03/26/18 11:11 Vital Signs Temperature 97.3 F L 03/26/18 09:19 Pulse Rate 75 03/26/18 09:19 Respiratory Rate 18 03/26/18 09:19 Blood Pressure 106/68 03/26/18 09:19 O2 Sat by Pulse Oximetry (%) Laboratory Tests 03/24/18 03/25/18 03/25/18 15:33 05:45 05:45 WBC 7.3 RBC 5.15 Hgb 14.7 Hct 44.5 MCV 86.4 MCH 28.5 MCHC 32.9 RDW 12.8 Plt Count 190 MPV 10.3 D Sodium 136 Potassium 4.2 Chloride 102 Carbon Dioxide 28 Anion Gap 6 L BUN 10 Creatinine 0.7 Creat Clearance w eGFR > 60 Random Glucose 92 Calcium 8.9 Total Bilirubin 0.3 AST 17 ALT 35 Alkaline Phosphatase 72 Total Protein 7.7 Albumin 4.2 Urine Color Yellow Urine Appearance Turbid Urine pH 5.0 Ur Specific [place] 1.027 Urine Protein Negative Urine Glucose (UA) Negative Urine Ketones Negative Urine Blood Negative Urine Nitrite Negative Urine Bilirubin Negative Urine Urobilinogen Negative Ur Leukocyte Esterase Negative RPR Titer 03/25/18 05:45 WBC RBC Hgb Hct MCV MCH MCHC RDW Plt Count MPV Sodium Potassium Chloride Carbon Dioxide Anion Gap BUN Creatinine Creat Clearance w eGFR Random Glucose Calcium Total Bilirubin AST ALT Alkaline Phosphatase Total Protein Albumin Urine Color Urine Appearance Urine pH Ur Specific [place] Urine Protein Urine Glucose (UA) Urine Ketones Urine Blood Urine Nitrite Urine Bilirubin Urine Urobilinogen Ur Leukocyte Esterase RPR Titer Nonreactive aaox3 ambulating no acute distress Assessment: 03/26/18 11:12 withdrawal sx Plan: continue detox increase fluids prune juice ordered MOM prn
[2018-03-26] MEDS: THIAMINE HCL 100 MG TABLET (FP) PO SCH (22:20)
[2018-03-26] MEDS: MELATONIN 5 MG TABLETS PO PRN (22:21)
[2018-03-27] MEDS ORDERED: METHADONE HCL 5 MG TABLET (FOR DETOX USE ONLY) PO ONE (10:00)
[2018-03-27] MEDS: cloNIDine HCL 0.1 MG TABLET PO SCH ×2 (10:34→22:15)
[2018-03-27] MEDS: PRENATAL VITAMINS W/ FOLIC ACID TABLET (FP) PO SCH (10:34)
[2018-03-27] MEDS: CYCLOBENZAPRINE HCL 10 MG TABLET (FP) PO PRN ×3 (10:34→22:15)
[2018-03-27] MEDS: diazePAM 5 MG TABLET PO PRN (10:34)
--- NOTE | 2018-03-27 12:51 | PN ---
BHS Progress Note (SOAP) Subjective: interrupted sleep sweats body aches Objective: 03/27/18 12:50 Vital Signs Temperature 97.3 F L 03/27/18 09:24 Pulse Rate 96 H 03/27/18 09:24 Respiratory Rate 18 03/27/18 09:24 Blood Pressure 113/70 03/27/18 09:24 O2 Sat by Pulse Oximetry (%) aaox3 ambulating no acute distress Assessment: 03/27/18 12:50 withdrawal sx Plan: continue detox increase fluids
--- NOTE | 2018-03-27 14:28 | PN ---
BHS Progress Note (SOAP) Subjective: sweats anxiety Objective: 03/27/18 14:27 Vital Signs Temperature 97.2 F L 03/27/18 14:12 Pulse Rate 86 03/27/18 14:12 Respiratory Rate 18 03/27/18 14:12 Blood Pressure 97/59 L 03/27/18 14:12 O2 Sat by Pulse Oximetry (%) aaox3 ambulating no acute distress Assessment: 03/27/18 14:28 mild withdrawal sx Plan: continue detox increase fluids
[2018-03-27] MEDS: IBUPROFEN 400 MG TABLET (FP) PO PRN ×2 (14:32→22:15)
[2018-03-27] MEDS: hydrOXYzine PAMOATE 50 MG CAPSULE (FP) PO PRN ×3 (14:32→22:16)
[2018-03-27] MEDS: MELATONIN 5 MG TABLETS PO PRN (22:15)
[2018-03-27] MEDS: THIAMINE HCL 100 MG TABLET (FP) PO SCH (22:15)
[2018-03-28 09:17] VITALS: BP 108/69; PULSE 105; TEMP 98.4
[2018-03-28] MEDS ORDERED: METHADONE HCL 10 MG TABLET (FOR DETOX USE ONLY) PO ONE (10:00)
[2018-03-28] MEDS: hydrOXYzine PAMOATE 50 MG CAPSULE (FP) PO PRN (10:16)
[2018-03-28] MEDS: CYCLOBENZAPRINE HCL 10 MG TABLET (FP) PO PRN (10:16)
[2018-03-28] MEDS: cloNIDine HCL 0.1 MG TABLET PO SCH (10:16)
[2018-03-28] MEDS: PRENATAL VITAMINS W/ FOLIC ACID TABLET (FP) PO SCH (10:16)
--- NOTE | 2018-03-28 10:59 | PN ---
BHS Progress Note (SOAP) Subjective: constipation anxiety sweats Objective: 03/28/18 11:01 Vital Signs Temperature 98.4 F 03/28/18 09:17 Pulse Rate 105 H 03/28/18 09:17 Respiratory Rate 18 03/28/18 09:17 Blood Pressure 108/69 03/28/18 09:17 O2 Sat by Pulse Oximetry (%) aaox3 ambulating no acute distress Assessment: 03/28/18 11:02 withdrawal sx Plan: continue detox increase fluids
--- NOTE | 2018-03-28 13:18 | PN ---
S Progress Note Note: pt states she feels better and has arranged a poultry picker from her dad to go home. Pt does not want to continue staying on the unit.
--- NOTE | 2018-03-28 13:19 | DS ---
[facility] Detox Discharge Summary Admission Date: 03/24/18 Discharge Date: 03/28/18 - History Present History: Cocaine Dependence, Opioid Dependence - Physical Exam Results Vital Signs: Vital Signs Temperature 98.4 F 03/28/18 09:17 Pulse Rate 105 H 03/28/18 09:17 Respiratory Rate 18 03/28/18 09:17 Blood Pressure 108/69 03/28/18 09:17 O2 Sat by Pulse Oximetry (%) - Treatment Hospital Course: Detox Protocol Followed, Detoxed Safely, Responded well, Discharged Condition Good, Rehab Referral Accepted - Medication Discharge Medications: Ambulatory Orders NK [No Known Home Medication] 11/27/17 - Diagnosis (1) Substance induced mood disorder Current Visit: Yes Status: Chronic (2) Cocaine dependence Current Visit: No Status: Chronic Qualifiers: Substance use status: uncomplicated Qualified Code(s): F14.20 - Cocaine dependence, uncomplicated (3) Obese Current Visit: Yes Status: Chronic Qualifiers: Obesity type: unspecified obesity type Obesity classification: adult class 2 (BMI 35 - 39.9) Body mass index: BMI 37.0-37.9 (4) Opioid dependence with withdrawal Current Visit: Yes Status: Chronic - AMA Did Patient Leave Against Medical Advice: No (going home referred to outpatient rehab)
[2018-03-29] MEDS ORDERED: METHADONE HCL 5 MG TABLET (FOR DETOX USE ONLY) PO ONE (06:00)
== END 2018-03-28 12:27 | disposition home or self-care (01) | DRG 897 ==
LOC: YASAS 10:54 → Y6N 13:13
PROC: HZ2ZZZZ Detoxification Services for Substance Abuse Treatment (ICD-10-PCS; principal; 2018-03-24)
DX: F11.23 Opioid dependence with withdrawal (principal); F14.20 Cocaine dependence, uncomplicated; F19.24 Other psychoactive substance dependence with psychoactive substance-induced mood disorder; E66.9 Obesity, unspecified; Z68.36 Body mass index [BMI] 36.0-36.9, adult
CPT/HCPCS: 36415; 80053; 81003; 85027; 86593; J0735

== ENCOUNTER 2018-05-09 16:26 | Inpatient (IN) | payer BC, OTHER ==
[2018-05-09 17:22] VITALS: BMI 36.7
--- NOTE | 2018-05-09 20:36 | HP ---
COWS - Scale Resting Pulse: 2= [place] 101-120 Sweatin=Flushed/Facial Moisture Restless Observation: 0= Sits Still Pupil Size: 0= Normal to Room Light Bone or Joint Aches: 4=Acute Joint/Muscle Pain Runny Nose/ Eye Tearin= Nasal Congestion GI Upset > 30mins: 2= Nausea/Diarrhea (diarrhea x 2) Tremor Observation: 2= Slight Tremor Visible Yawning Observation: 0= None Anxiety or Irritability: 2=Irritable/Anxious Goose Flesh Skin: 0=Smooth Skin COWS Score: 15 CIWA Score - Admission Criteria OASAS Guidelines: Admission for Medically Managed Detox: Requires at least one of the followin. CIWA greater than 12 2. Seizures within the past 24 hours 3. Delirium tremens within the past 24 hours 4. Hallucinations within the past 24 hours 5. Acute intervention needed for co occurring medical disorder 6. Acute intervention needed for co occurring psychiatric disorder 7. Severe withdrawal that cannot be handled at a lower level of care (continued vomiting, continued diarrhea, abnormal vital signs) requiring intravenous medication and/or fluids 8. Admission ROS [facility] Chief Complaint: Heroin withdrawal symptoms Allergies/Adverse Reactions: Allergies Allergy/AdvReac Type Severity Reaction Status Date / Time No Known Allergies Allergy Verified 05/09/18 19:46 History of Present Illness: 22 years old female with 2 years of heroin dependence is seeking admission to detox. Patient has been in previous detox at [facility] and reports insignificant period of sobriety. She has medical history of PCOS, anxiety and depression. She denies suicide attempt and suicidal ideation at this time. Exam Limitations: No Limitations - Ebola screening Have you traveled outside of the country in the last 21 days: No (N) Have you had contact with anyone from an Ebola affected area: No Have you been sick,other than usual withdrawal symptoms: No Do you have a fever: No - Review of Systems Constitutional: Chills, Loss of Appetite, Malaise, Night Sweats, Changes in sleep EENT: reports: Nose Congestion Respiratory: reports: No Symptoms reported Cardiac: reports: No Symptoms Reported GI: reports: Diarrhea (x 2), Poor Fluid Intake, Abdominal cramping : reports: No Symptoms Reported Musculoskeletal: reports: Back Pain, Muscle Pain Integumentary: reports: Dryness, Flushing Neuro: reports: Tremors Endocrine: reports: No Symptoms Reported Hematology: reports: No Symptoms Reported Psychiatric: reports: Orientated x3, Anxious Patient History - Patient Medical History Hx Anemia: No Hx Asthma: No Hx Chronic Obstructive Pulmonary Disease (COPD): No Hx Cancer: No Hx Cardiac Disorders: No Hx Congestive Heart Failure: No Hx Hypertension: No Hx Hypercholesterolemia: No Hx Pacemaker: No HX Cerebrovascular Accident: No Hx Seizures: No Hx Dementia: No Hx Diabetes: No Hx Gastrointestinal Disorders: No Hx Liver Disease: No Hx Genitourinary Disorders: No Hx Sexually Transmitted Disorders: No Hx Renal Disease (ESRD): No Hx Thyroid Disease: No Hx Human Immunodeficiency Virus (HIV): No Hx Hepatitis C: No Hx Depression: Yes (Not on medication) Hx Suicide Attempt: No (Denies suicide attempt/ suicidal ideation at this time) Hx Bipolar Disorder: No Hx Schizophrenia: No Other Medical History: Anxiety, PCOS - Not on medication - Patient Surgical History Past Surgical History: No Hx Neurologic Surgery: No Hx Cataract Extraction: No Hx Cardiac Surgery: No Hx Lung Surgery: No Hx Breast Surgery: No Hx Breast Biopsy: No Hx Abdominal Surgery: No Hx Appendectomy: No Hx Cholecystectomy: No Hx Genitourinary Surgery: No Hx Section: No Hx Orthopedic Surgery: No Anesthesia Reaction: No - PPD History Previous Implant?: Yes Documented Results: Negative w/proof Implanted On Prior [facility] Admission?: Yes Date: 11/29/17 Results: 0 mm PPD to be Administered?: No - Reproductive History Patient is a Female of Child Bearing Age (11 -55 yrs old): Yes Last Menstrual Period: 03/10/18 Patient : No - Smoking Cessation Smoking history: Never smoked Have you smoked in the past 12 months: No Hx Chewing Tobacco Use: No Initiated information on smoking cessation: No - Substance & Tx. History Hx Alcohol Use: No Hx Substance Use: Yes Substance Use Type: Cocaine, Heroin, Opiates Hx Substance Use Treatment: Yes ([facility]) - Substances Abused Heroin Route: Inhalation Frequency: Daily Amount used: 25 bags Age of first use: 20 Date of Last Use: 05/09/18 Cocaine Route: Inhalation Frequency: 1-2 times per week Amount used: 1gm Age of first use: 24 Date of Last Use: 05/06/18 Family Disease History - Family Disease History Family History: Denies Admission Physical Exam BHS - Vital Signs Vital Signs: Vital Signs - 24 hr 05/09/18 17:20 Temperature 97.7 F Pulse Rate 105 H Respiratory 18 Rate Blood Pressure 117/78 - Physical General Appearance: Yes: Moderate Distress, Tremorous, Irritable, Sweating, Anxious HEENTM: Yes: EOMI, Normal ENT Inspection, Normocephalic, Normal Voice, SKIP Respiratory: Yes: Lungs Clear, Normal Breath Sounds, No Respiratory Distress Neck: Yes: Supple Breast: Yes: Breast Exam Deferred Cardiology: Yes: Tachycardia Abdominal: Yes: Normal Bowel Sounds, Soft Genitourinary: Yes: Within Normal Limits Back: Yes: Normal Inspection Musculoskeletal: Yes: Back pain, Muscle Pain Extremities: Yes: Tremors Neurological: Yes: social work assistant II-XII NML intact, Alert, Normal Mood/Affect Integumentary: Yes: Warm, Diaphoresis Lymphatic: Yes: Within Normal Limits - Diagnostic (1) PCOS (polycystic ovarian syndrome) Current Visit: Yes Status: Chronic (2) Depression Current Visit: Yes Status: Chronic Qualifiers: Depression Type: unspecified Qualified Code(s): F32.9 - Major depressive disorder, single episode, unspecified (3) Anxiety Current Visit: Yes Status: Chronic (4) Cocaine dependence Current Visit: Yes Status: Chronic Qualifiers: Substance use status: uncomplicated Qualified Code(s): F14.20 - Cocaine dependence, uncomplicated (5) Obese Current Visit: Yes Status: Chronic Qualifiers: Obesity type: due to excess calories Obesity classification: adult class 2 (BMI 35 - 39.9) Body mass index: BMI 37.0-37.9 (6) Opioid dependence with withdrawal Current Visit: Yes Status: Chronic Cleared for Admission [facility] - Detox or Rehab [facility] Level of Care: Medically Managed Detox Regimen/Protocol: Methadone [facility] Breath Alcohol Content Breath Alcohol Content: 0 Urine Pregancy Test - Result Urine Test Results: Negative- NO Line Present Urine Drug Screen - Results Drug Screen Negative: No Urine Drug Screen Results: EAN-Cocaine, OPI-Opiates, BZO-Benzodiazepines, OXY- Oxycodone
[2018-05-09] MEDS ORDERED: LOPERAMIDE HCL 2 MG CAPSULE PO PRN (20:53)
[2018-05-09] MEDS ORDERED: IBUPROFEN 400 MG TABLET (FP) PO PRN (20:53)
[2018-05-09] MEDS ORDERED: MAGNESIUM HYDROX 2400MG/30ML ORAL SUSPENSION 30 ML CUP PO PRN (20:53)
[2018-05-09] MEDS ORDERED: MAGNESIUM CITRATE 300 ML BOTTLE PO PRN (20:53)
[2018-05-09] MEDS ORDERED: ACETAMINOPHEN 325 MG TABLET (FP) PO PRN (20:53)
[2018-05-09] MEDS ORDERED: MENTHOL/PHENOL 1 EACH UD MM PRN (20:53)
[2018-05-09] MEDS ORDERED: guaiFENesin/D-METHORPHAN HB 10 ML UNIT-DOSE CUPS PO PRN (20:53)
[2018-05-09] MEDS ORDERED: MAG HYDROX/AL HYDROX/SIMETH 30 ML UNIT-DOSE CUP PO PRN (20:53)
[2018-05-09] MEDS ORDERED: P-EPHED 60MG/TRIPROLIDI 2.5MG TABLET PO PRN (20:53)
[2018-05-09] MEDS: METHADONE HCL 10 MG TABLET (FOR DETOX USE ONLY) PO ONE ×2 (22:52→22:59)
[2018-05-09] MEDS: THIAMINE HCL 100 MG TABLET (FP) PO SCH (22:53)
[2018-05-09] MEDS: diazePAM 5 MG TABLET PO PRN (22:54)
[2018-05-09] MEDS ORDERED: METHADONE HCL 10 MG TABLET (FOR DETOX USE ONLY) PO ONE (23:30)
[2018-05-10] MEDS ORDERED: METHADONE HCL 10 MG TABLET (FOR DETOX USE ONLY) PO ONE (10:00)
[2018-05-10] MEDS: CYCLOBENZAPRINE HCL 10 MG TABLET (FP) PO PRN ×2 (10:12→22:14)
[2018-05-10] MEDS: PRENATAL VITAMINS W/ FOLIC ACID TABLET (FP) PO SCH (10:12)
[2018-05-10] MEDS: diazePAM 5 MG TABLET PO PRN ×3 (10:12→22:13)
[2018-05-10 10:32] LABS: HEMATOCRIT 38.5 % (32.4-45.2); HEMOGLOBIN 13.5 GM/dL (10.7-15.3); MCH 29.7 pg (25.7-33.7); MEAN CELL VOLUME 84.7 fl (80-96); MEAN PLT VOLUME 8.5 fl (7.5-11.1); PLATELET COUNT 217 K/MM3 (134-434); RBC 4.55 M/mm3 (3.60-5.2); RDW 12.6 % (11.6-15.6); WHITE BLOOD COUNT 6.7 K/mm3 (4.0-10.0)
[2018-05-10 11:07] LABS: ALBUMIN 3.6 g/dl (3.4-5.0); ALK PHOS 71 U/L (45-117); ANION GAP 9 MMOL/L (8-16); BILIRUBIN,TOTAL 0.3 mg/dL (0.2-1); BLOOD UREA NITROGEN 10 mg/dL (7-18); CALCIUM 8.5 mg/dL (8.5-10.1); CHLORIDE 105 mmol/L (98-107); CO2 26 mmol/L (21-32); CREATININE 0.7 mg/dL (0.55-1.3); GLUCOSE,RANDOM 81 mg/dL (74-106); SGOT/AST 11 U/L (15-37); SGPT/ALT 25 U/L (13-61); SODIUM 140 mmol/L (136-145); TOT PROT 6.7 g/dl (6.4-8.2)
--- NOTE | 2018-05-10 12:39 | CONSULT ---
[facility] Psychiatric Consult - Data Date of interview: 05/10/18 Admission source: [facility] Identifying data: Readmission to [facility] for this 22 y/o female for detoxification treatment(heroin, cocaine). Examined on [address]. Patient is single without dependents, domiciled (lives with parents), unemployed and supported by family. Substance Abuse History: Discussed with the patient. Details in current [facility] report as follows : Smoking history: Never smoked. Have you smoked in the past 12 months: No. Hx Chewing Tobacco Use: No. Initiated information on smoking cessation: No. - Substance & Tx. History. Hx Alcohol Use: No. Hx Substance Use: Yes. Substance Use Type: Cocaine, Heroin, Opiates. Hx Substance Use Treatment: Yes ([facility]). - Substances Abused. Heroin. Route: Inhalation. Frequency: Daily. Amount used: 25 bags. Age of first use: 20. Date of Last Use: 05/09/18. Cocaine. Route: Inhalation. Frequency: 1-2 times per week. Amount used: 1gm. Age of first use: 24. Date of Last Use: 05/06/18 Medical History: Patient denies medical problems. Obesity. H+P report, on admission, mentions the existence of PCOS (polycystic ovary syndrome). Psychiatric History: No reported history of psychiatric hospitalizations. Patient denies taking or getting scripts for psychotropic medications. Ms Ward admits to being under the care of a private psychiatrist, in the [place] area, who diagnosed her with MDD annd Anxiety Disorder. She stopped taking sertraline two months ago. Denies history of suicide attempts. Physical/Sexual Abuse/Trauma History: Patient denies. Additional Comment: Urine Drug Screen Results: EAN-Cocaine, OPI-Opiates, BZO- Benzodiazepines, OXY-Oxycodone. Noted. Mental Status Exam - Mental Status Exam Alert and Oriented to: Time, Place, Person Cognitive Function: Good Patient Appearance: Well Groomed (short stature, overweight) Mood: Hopeful, Euthymic Affect: Appropriate, Normal Range Patient Behavior: Fatigued, Appropriate, Cooperative Speech Pattern: Clear Voice Loudness: Normal Thought Process: Intact, Goal Oriented Thought Disorder: Not Present Hallucinations: Denies Suicidal Ideation: Denies Homicidal Ideation: Denies Insight/Judgement: Poor Sleep: Poorly Appetite: Good Muscle strength/Tone: Normal (no complaint offered) Gait/Station: Normal Psychiatric Findings - Problem List ([place] 1, 2,3) (1) Opioid dependence with withdrawal Current Visit: Yes Status: Acute (2) Cocaine dependence Current Visit: Yes Status: Chronic Qualifiers: Substance use status: uncomplicated Qualified Code(s): F14.20 - Cocaine dependence, uncomplicated (3) Insomnia Current Visit: Yes Status: Chronic - Initial Treatment Plan Initial Treatment Plan: Psychoeducation. Sleep hygiene. Detoxification. Support. NA meetings. Strategies for relapse prevention are revisited with patient. Insomnia is addressed with melatonin at bedtime. With patient's verbal consent. Observation.
--- NOTE | 2018-05-10 16:19 | PN ---
BHS COWS - Scale Resting Pulse: 1= [place] 81-100 Sweatin= Chills/Flushing Restless Observation: 1= Difficult to Sit Still Pupil Size: 0= Normal to Room Light Bone or Joint Aches: 2= Severe Diffuse Aches Runny Nose/ Eye Tearin= None GI Upset > 30mins: 0= None Tremor Observation of Outstretched Hands: 2= Slight Tremor Visible Yawning Observation: 1= 1-2x During Session Anxiety or Irritability: 2=Irritable/Anxious Goose Flesh Skin: 3=Piloerection COWS Score: 13 BHS Progress Note (SOAP) Subjective: Interrupted Sleep, Body Aches, Tremors, Sweating. Objective: PATIENT A & O X 3, OBSERVED AMBULATING ON UNIT. IN NO ACUTE DISTRESS. 05/10/18 16:17 Vital Signs Temperature 96.8 F L 05/10/18 14:01 Pulse Rate 85 05/10/18 14:01 Respiratory Rate 18 05/10/18 14:01 Blood Pressure 102/68 05/10/18 14:01 O2 Sat by Pulse Oximetry (%) Laboratory Tests 05/10/18 05/10/18 08:00 08:00 WBC 6.7 RBC 4.55 Hgb 13.5 Hct 38.5 MCV 84.7 MCH 29.7 MCHC 35.0 RDW 12.6 Plt Count 217 MPV 8.5 D Sodium 140 Potassium 4.0 Chloride 105 Carbon Dioxide 26 Anion Gap 9 BUN 10 Creatinine 0.7 Creat Clearance w eGFR > 60 Random Glucose 81 Calcium 8.5 Total Bilirubin 0.3 AST 11 L ALT 25 Alkaline Phosphatase 71 Total Protein 6.7 Albumin 3.6 LABS NOTED. RPR RESULT PENDING. 05/10/18 16:18 Assessment: 05/10/18 16:18 WITHDRAWAL SYMPTOMS. Plan: CONTINUE DETOX. PRN FLEXERIL PO FOR BODY ACHES / MUSCLE SPAMS.
--- NOTE | 2018-05-10 16:52 | EKG ---
Test Reason : Blood Pressure : / mmHG Vent. Rate : 094 BPM Atrial Rate : 094 BPM P-R Int : 148 ms QRS Dur : 084 ms QT Int : 356 ms P-R-T Axes : 031 040 018 degrees QTc Int : 445 ms NORMAL SINUS RHYTHM NORMAL ECG WHEN COMPARED WITH ECG OF 27-NOV-2017 21:46, NO SIGNIFICANT CHANGE WAS FOUND Confirmed by Sara Carrillo ([id number]) on 05/10/2018 4:52:05 PM Referred By: Confirmed By:Sara Carrillo
[2018-05-10] MEDS: THIAMINE HCL 100 MG TABLET (FP) PO SCH (22:12)
[2018-05-10] MEDS: MELATONIN 5 MG TABLETS PO PRN (22:14)
[2018-05-11] MEDS: diazePAM 5 MG TABLET PO PRN ×5 (05:48→22:06)
[2018-05-11] MEDS ORDERED: METHADONE HCL 5 MG TABLET (FOR DETOX USE ONLY) PO ONE (10:00)
[2018-05-11] MEDS: PRENATAL VITAMINS W/ FOLIC ACID TABLET (FP) PO SCH (10:12)
[2018-05-11] MEDS ORDERED: hydrOXYzine PAMOATE 50 MG CAPSULE (FP) PO PRN (10:29)
--- NOTE | 2018-05-11 10:32 | PN ---
[facility] COWS - Scale Resting Pulse: 0= [place] 80 or Below Sweatin= Chills/Flushing Restless Observation: 1= Difficult to Sit Still Pupil Size: 0= Normal to Room Light Bone or Joint Aches: 1= Mild Discomfort Runny Nose/ Eye Tearin= None GI Upset > 30mins: 1= Stomach Cramp Tremor Observation of Outstretched Hands: 0= None Yawning Observation: 0= None Anxiety or Irritability: 1=Feels Anxious/Irritable Goose Flesh Skin: 0=Smooth Skin COWS Score: 5 BHS Progress Note (SOAP) Subjective: Pt states sometimes feels uncomfortable- may need more detox meds O Vital Signs - 24 hr 05/10/18 05/10/18 05/10/18 14:01 18:00 22:00 Temperature 96.8 F L 97.0 F L 97.5 F L Pulse Rate 85 97 H 91 H Respiratory 18 16 16 Rate Blood Pressure 102/68 102/73 112/72 05/11/18 05/11/18 05/11/18 00:30 03:30 06:25 Temperature 96.7 F L Pulse Rate 77 Respiratory 16 16 18 Rate Blood Pressure 101/67 05/11/18 09:40 Temperature 98.1 F Pulse Rate 100 H Respiratory 18 Rate Blood Pressure 112/66 Laboratory Tests 05/10/18 05/10/18 05/10/18 08:00 08:00 08:00 WBC 6.7 RBC 4.55 Hgb 13.5 Hct 38.5 MCV 84.7 MCH 29.7 MCHC 35.0 RDW 12.6 Plt Count 217 MPV 8.5 D Sodium 140 Potassium 4.0 Chloride 105 Carbon Dioxide 26 Anion Gap 9 BUN 10 Creatinine 0.7 Creat Clearance w eGFR > 60 Random Glucose 81 Calcium 8.5 Total Bilirubin 0.3 AST 11 L ALT 25 Alkaline Phosphatase 71 Total Protein 6.7 Albumin 3.6 RPR Titer Nonreactive a/p: continue heroin detox protocol, will add clonidine and vistaril prn for withdrawal Sx. pt will go to methadone MAT for treatment at discharge
[2018-05-11] MEDS: cloNIDine HCL 0.1 MG TABLET PO PRN ×2 (11:49→22:06)
[2018-05-11] MEDS: CYCLOBENZAPRINE HCL 10 MG TABLET (FP) PO PRN (19:08)
[2018-05-11] MEDS: THIAMINE HCL 100 MG TABLET (FP) PO SCH (22:06)
[2018-05-11] MEDS: MELATONIN 5 MG TABLETS PO PRN (22:06)
[2018-05-12] MEDS ORDERED: METHADONE HCL 5 MG TABLET (FOR DETOX USE ONLY) PO ONE (10:00)
[2018-05-12] MEDS: CYCLOBENZAPRINE HCL 10 MG TABLET (FP) PO PRN (10:10)
[2018-05-12] MEDS: PRENATAL VITAMINS W/ FOLIC ACID TABLET (FP) PO SCH (10:10)
[2018-05-12] MEDS: diazePAM 5 MG TABLET PO PRN ×2 (10:10→14:13)
[2018-05-12] MEDS ORDERED: ONDANSETRON *ODT* 4 MG TABLET SL PRN (10:34)
--- NOTE | 2018-05-12 10:34 | PN ---
B[facility] Progress Note (SOAP) Subjective: restless nausea sweats interrupted sleep Objective: 05/12/18 10:33 Vital Signs Temperature 98.6 F 05/12/18 09:20 Pulse Rate 113 H 05/12/18 09:20 Respiratory Rate 18 05/12/18 09:20 Blood Pressure 145/84 05/12/18 09:20 O2 Sat by Pulse Oximetry (%) [id number] ambulating no acute distress Assessment: 05/12/18 10:33 withdrawal sx Plan: continue detox increase fluids zofran prn
[2018-05-12 13:38] VITALS: BP 129/73; PULSE 102; TEMP 98.4
[2018-05-12] MEDS: cloNIDine HCL 0.1 MG TABLET PO PRN (14:13)
--- NOTE | 2018-05-12 14:48 | PN ---
S Progress Note Note: pt was found being extra close with a male patient; when approached and asked if she had a boy friend on the unit; she did not deny it. pt was told she will be transferred to another unit to complete her detox but she refused and insisted on signing AMA. All interdisciplinary team involved in patient care; however, pt continued to insist on signing out.
--- NOTE | 2018-05-12 14:56 | DS ---
[facility] Detox Discharge Summary Admission Date: 05/09/18 - History Present History: Opioid Dependence, Sedative Dependence - Physical Exam Results Vital Signs: Vital Signs Temperature 98.4 F 05/12/18 13:38 Pulse Rate 102 H 05/12/18 13:38 Respiratory Rate 18 05/12/18 13:38 Blood Pressure 129/73 05/12/18 13:38 O2 Sat by Pulse Oximetry (%) - Treatment Hospital Course: Discharged Condition Good - Medication Discharge Medications: Ambulatory Orders NK [No Known Home Medication] 11/27/17 - Diagnosis (1) Opioid dependence with withdrawal Current Visit: Yes Status: Chronic (2) Anxiety Current Visit: Yes Status: Chronic (3) Cocaine dependence Current Visit: Yes Status: Chronic Qualifiers: Substance use status: uncomplicated Qualified Code(s): F14.20 - Cocaine dependence, uncomplicated (4) Obese Current Visit: Yes Status: Chronic Qualifiers: Obesity type: due to excess calories Obesity classification: adult class 2 (BMI 35 - 39.9) Body mass index: BMI 37.0-37.9 (5) PCOS (polycystic ovarian syndrome) Current Visit: Yes Status: Chronic (6) Benzodiazepine abuse Current Visit: No Status: Acute (7) Substance induced mood disorder Current Visit: No Status: Chronic - AMA Did Patient Leave Against Medical Advice: Yes (going home)
[2018-05-12] MEDS: THIAMINE HCL 100 MG TABLET (FP) PO SCH (22:47)
[2018-05-13] MEDS ORDERED: METHADONE HCL 10 MG TABLET (FOR DETOX USE ONLY) PO ONE ×2 (06:00→10:00)
[2018-05-14] MEDS ORDERED: METHADONE HCL 5 MG TABLET (FOR DETOX USE ONLY) PO ONE (06:00)
== END 2018-05-12 15:18 | disposition left against medical advice (07) | DRG 894 ==
LOC: YASAS 16:26 → Y3N 22:17 → Y6N 05-11 06:30
PROVIDERS: ADMIT Neuromusculoskeletal Medicine & OMM; ATTEND Neuromusculoskeletal Medicine & OMM
PROC: HZ2ZZZZ Detoxification Services for Substance Abuse Treatment (ICD-10-PCS; principal; 2018-05-09)
DX: F11.23 Opioid dependence with withdrawal (principal); F14.20 Cocaine dependence, uncomplicated; F13.10 Sedative, hypnotic or anxiolytic abuse, uncomplicated; F19.24 Other psychoactive substance dependence with psychoactive substance-induced mood disorder; F41.9 Anxiety disorder, unspecified; F32.9 Major depressive disorder, single episode, unspecified; R00.0 Tachycardia, unspecified; E28.2 Polycystic ovarian syndrome; G47.00 Insomnia, unspecified; E66.9 Obesity, unspecified; Z68.36 Body mass index [BMI] 36.0-36.9, adult
CPT/HCPCS: 36415; 80053; 85027; 86593; 93005; 93010; J0735